=== PATIENT | female | born 1940 | race Caucasian/White ===

== ENCOUNTER 2018-09-05 07:40 | Observation (INO) ==
--- NOTE | 2018-09-05 07:47 | Emergency Department Note ---
Disposition Clinical Impression: Congestive heart failure Qualifiers: Heart failure type: unspecified Heart failure chronicity: acute on chronic Qualified Code(s): I50.9 - Heart failure, unspecified Disposition: Admitted As Inpatient Condition: Good Referrals: Alejo Baca MD [Primary Care Provider] - Forms: ED Satisfaction Letter Time of Disposition: 08:45 SOB HPI - General Chief Complaint: ED Shortness of Breath/Dyspnea Stated Complaint: difficult breathing Time Seen by Provider: 09/05/18 07:46 Source: patient Mode of arrival: EMS Limitations: no limitations Nursing Notes Reviewed: Yes Vital Signs Reviewed: Yes - History of Present Illness 70-year-old female presents from EMS with complaints of shortness of breath. Patient reports her bleeding became worse last night and persisted throughout the night. Patient complains of intermittent pain between her shoulder blades. Patient reports mild cough nonproductive. Patient denies any fevers or chills. Patient has noticed some increased swelling in her right lower extremity. Patient was found to have sats at 88% upon EMS arrival. Patient received 1 DuoNeb. Pt Subjective Complaint: shortness of breath Onset (ago): day(s) (1) Severity: moderate Consistency/Duration: gradually worsening Improves with: bronchodilators Worsens with: exertion Known history of: congestive heart failure Associated symptoms: Reports: cough Treatment prior to arrival: oxygen, bronchodilator Cough present: Yes Cough Description: Voluntary Cough Frequency: Intermittent - Related Data Home Medications Medication Instructions Recorded Confirmed Carvedilol 12.5 mg PO DAILY 05/24/15 09/05/18 Digoxin [Lanoxin] 0.125 mg PO DAILY 05/24/15 09/05/18 Furosemide [Lasix] 20 mg PO DAILY 05/24/15 09/05/18 Gabapentin [Neurontin] 300 mg PO TID 05/24/15 09/05/18 Lovastatin [Altoprev] 40 mg PO DAILY 05/24/15 09/05/18 Warfarin [Coumadin] 5 mg PO DAILY 05/24/15 09/05/18 dilTIAZem HCl [Cardizem] 60 mg PO BID 05/24/15 09/05/18 Calcium Carbonate/Vitamin D3 1 each PO DAILY 09/05/18 09/05/18 [Oyster Shell Calcium-Vit D Tab] Cholecalciferol (Vitamin D3) 5,000 unit PO DAILY 09/05/18 09/05/18 [Vitamin D3] Cyclobenzaprine [Flexeril] 5 mg PO TID PRN 09/05/18 09/05/18 Losartan [Cozaar] 25 mg PO DAILY 09/05/18 09/05/18 Allergies Allergy/AdvReac Type Severity Reaction Status Date / Time CHADWICK Inhibitors AdvReac See Verified 06/06/18 05:12 Comments All systems ED: reviewed and negative except as stated. Review of Systems: As Per HPI Constitutional: Denies: fever, chills ENT ED: Denies: congestion Cardiovascular: Reports: dyspnea on exertion. Denies: chest pain, palpitations Respiratory: Reports: cough, dyspnea. Denies: sputum production Gastrointestinal: Denies: abdominal pain, nausea, vomiting Integumentary: Denies: rash Neurological: Reports: weakness. Denies: headache Psychiatric: Denies: anxiety Hematological/Lymphatic: Denies: easy bleeding, easy bruising Past Medical History - Past Medical History Attestation: Yes The following information was validated with the patient. 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 Absent: conjunctival injection - ENT ENT exam: normal oropharynx, mucous membranes moist, TM's normal bilaterally - Neck Neck exam: Present: normal inspection. Absent: lymphadenopathy, thyromegaly - Expanded Neck Exam Neck exam focused ED: Absent: JVD - Chest Chest inspection: Present: normal inspection, symmetric chest wall rise - Respiratory Respiratory exam: Present: other (tachypnea) - Expanded Respiratory Exam Location: rales: Left, Right, Lower - Cardiovascular Cardiovascular exam: Present: regular rate, normal rhythm - Abdominal Exam Abdominal exam: Present: soft, Non-Tender, normal bowel sounds - Extremities Exam Extremities exam: Present: pedal edema (trace b/l). Absent: calf tenderness - Neurological Exam Neurological exam: Present: alert, oriented X3 - Skin Skin exam: Present: warm, dry, intact, normal color Course - Reevaluation(s) Reevaluation #1: Patient's chest x-ray confirmed congestive heart failure. Patient is given 60 mg Lasix IV hypertension nitro paste and aspirin. Patient is feeling markedly better at this time. I have spoken with the hospitalist, Dr. Escalante, and he will admit patient for further management. Patient is in agreement with this plan. Time: 08:43 Vital Signs Temperature 98.0 F 09/05/18 07:41 Pulse Rate 88 09/05/18 07:41 Respiratory Rate 20 09/05/18 07:41 Blood Pressure 168/107 09/05/18 07:41 O2 Sat by Pulse Oximetry 95 09/05/18 07:41 Temperature 98.0 F 09/05/18 07:41 Pulse Rate 85 09/05/18 08:32 Respiratory Rate 20 09/05/18 08:32 Blood Pressure 128/79 09/05/18 08:32 O2 Sat by Pulse Oximetry 94 09/05/18 08:32 Oxygen Delivery Oxygen Delivery Room Air Shortness of Breath/Dyspnea - Differential Diagnosis Likely: congestive heart failure. Unlikely: acute exacerbation of chronic obstructive airways disease, pneumonia, pulmonary embolism - Lab Data Lab results reviewed: Yes I reviewed the patient's lab results. Lab results narrative: Patient's labs reviewed. Patient's cardiac labs negative. Patient's BNP slightly elevated. Patient's d-dimer is negative. Results discussed patient. Result diagrams: 09/05/18 08:10 09/05/18 08:10 Lab Results 09/05/18 09/05/18 09/05/18 Range/Units 08:10 08:10 08:10 WBC 7.5 (4.3-11.1) K/mcL RBC 4.94 (3.82-4.97) M/mcL Hgb 12.9 (11.5-15.4) g/dL Hct 41.0 (35.3-44.9) % MCV 83.0 (83.0-100.0) fL MCH 26.1 L (28.0-33.3) pg MCHC 31.5 L (31.6-35.5) g/dL RDW 13.1 (11.5-14.5) % Plt Count 178 (140-400) K/mcL MPV 10.1 (9.4-12.4) fL Immature Gran % 0.1 (0-4) % Seg Neutrophils % 55.3 % Lymphocytes % 33.3 % Monocytes % 9.1 % Eosinophils % 1.7 % Basophils % 0.5 % Neutrophils # 4.1 (1.6-8.9) K/mcL Lymphocytes # 2.5 (0.6-4.6) K/mcL Monocytes # 0.7 (0.0-1.3) K/mcL Eosinophils # 0.1 (0.0-0.6) K/mcL Basophils # 0.0 (0.0-0.2) K/mcL PT 30.2 H (9.4-12.1) Seconds INR 2.7 APTT 45.2 H (26.0-36.0) Seconds D-Dimer 258 (0-500) ng/mLFEU Sodium 139 (136-145) mEq/L Potassium 4.4 (3.5-5.1) mEq/L Chloride 104 (98-107) mEq/L Carbon Dioxide 30 H (23-29) mEq/L BUN 13 (8-23) mg/dL Creatinine 0.90 (0.60-1.20) mg/dL Est GFR ( Amer) > 60 (> 60) Est GFR (Non-Af Amer) > 60 (> 60) BUN/Creatinine Ratio 14 (6-26) Glucose 138 H (70-105) mg/dL Calculated Osmolality 290 (280-300) Lactic Acid (0.5-2.2) mmol/L Calcium 8.8 (8.6-10.3) mg/dL Total Bilirubin 0.4 (0.3-1.0) mg/dL AST 19 (13-39) Units/L ALT 17 (7-52) Units/L Alkaline Phosphatase 79 (34-104) Units/L Creatine Kinase 51 (30-223) Units/L Troponin I < 0.03 (< 0.04) ng/mL B-Natriuretic Peptide (Less than 100) pg/mL Serum Total Protein 6.6 (6.4-8.9) g/dL Albumin 3.7 (3.5-5.7) g/dL Globulin 2.9 (2.4-3.5) g/dL Albumin/Globulin Ratio 1.3 (1.1-2.2) 09/05/18 09/05/18 Range/Units 08:10 08:10 WBC (4.3-11.1) K/mcL RBC (3.82-4.97) M/mcL Hgb (11.5-15.4) g/dL Hct (35.3-44.9) % MCV (83.0-100.0) fL MCH (28.0-33.3) pg MCHC (31.6-35.5) g/dL RDW (11.5-14.5) % Plt Count (140-400) K/mcL MPV (9.4-12.4) fL Immature Gran % (0-4) % Seg Neutrophils % % Lymphocytes % % Monocytes % % Eosinophils % % Basophils % % Neutrophils # (1.6-8.9) K/mcL Lymphocytes # (0.6-4.6) K/mcL Monocytes # (0.0-1.3) K/mcL Eosinophils # (0.0-0.6) K/mcL Basophils # (0.0-0.2) K/mcL PT (9.4-12.1) Seconds INR APTT (26.0-36.0) Seconds D-Dimer (0-500) ng/mLFEU Sodium (136-145) mEq/L Potassium (3.5-5.1) mEq/L Chloride (98-107) mEq/L Carbon Dioxide (23-29) mEq/L BUN (8-23) mg/dL Creatinine (0.60-1.20) mg/dL Est GFR ( Amer) (> 60) Est GFR (Non-Af Amer) (> 60) BUN/Creatinine Ratio (6-26) Glucose (70-105) mg/dL Calculated Osmolality (280-300) Lactic Acid 1.5 (0.5-2.2) mmol/L Calcium (8.6-10.3) mg/dL Total Bilirubin (0.3-1.0) mg/dL AST (13-39) Units/L ALT (7-52) Units/L Alkaline Phosphatase (34-104) Units/L Creatine Kinase (30-223) Units/L Troponin I (< 0.04) ng/mL B-Natriuretic Peptide 237 H (Less than 100) pg/mL Serum Total Protein (6.4-8.9) g/dL Albumin (3.5-5.7) g/dL Globulin (2.4-3.5) g/dL Albumin/Globulin Ratio (1.1-2.2) - Radiology Data Radiology results reviewed: Yes I reviewed the patient's radiology results. Patient's chest x-ray was interpreted by the radiologist revealed me as positive for pulmonary edema. Results discussed patient. - EKG Data EKG attestation: Yes I reviewed and interpreted this EKG. EKG shows normal: Reports: sinus rhythm Rate: Reports: normal Rhythm: Reports: NSR Interpretation: Reports: other (paced rhythm)
[2018-09-05] MEDS ORDERED: Nitroglycerin 1 INCH/GM PACKET TP ONE (08:10)
[2018-09-05] MEDS ORDERED: Furosemide 40 MG/4 ML VIAL IVP ONE (08:10)
[2018-09-05] MEDS ORDERED: Aspirin 81 MG TAB.CHEW PO ONE (08:10)
[2018-09-05 08:20] LABS: Basophils % 0.5 %; Eosinophils # 0.1 K/mcL (0.0-0.6); Eosinophils % 1.7 %; Hemoglobin 12.9 g/dL (11.5-15.4); Immature Granulocytes % 0.1 % (0-4); Lymphocytes # 2.5 K/mcL (0.6-4.6); Lymphocytes % 33.3 %; Mean Corpuscular HGB Conc 31.5 g/dL (31.6-35.5); Mean Corpuscular Hemoglobin 26.1 pg (28.0-33.3); Mean Platelet Volume 10.1 fL (9.4-12.4); Monocytes # 0.7 K/mcL (0.0-1.3); Monocytes % 9.1 %; Neutrophils # 4.1 K/mcL (1.6-8.9); Platelet Count 178 K/mcL (140-400); Red Blood Count 4.94 M/mcL (3.82-4.97); Red Cell Distribution Width 13.1 % (11.5-14.5); Segmented Neutrophils % 55.3 %
[2018-09-05 08:24] LABS: INR 2.7; Prothrombin Time 30.2 Seconds (9.4-12.1)
[2018-09-05 08:27] LABS: Activated Partial Thrombo Time 45.2 Seconds (26.0-36.0)
[2018-09-05 08:31] LABS: Alanine Aminotransferase 17 Units/L (7-52); Albumin 3.7 g/dL (3.5-5.7); Albumin/Globulin Ratio 1.3 (1.1-2.2); Alkaline Phosphatase 79 Units/L (34-104); Aspartate Amino Transferase 19 Units/L (13-39); BUN/Creatinine Ratio 14 (6-26); Bilirubin,Total 0.4 mg/dL (0.3-1.0); Blood Urea Nitrogen 13 mg/dL (8-23); Calcium 8.8 mg/dL (8.6-10.3); Carbon Dioxide 30 mEq/L (23-29); Chloride 104 mEq/L (98-107); Creatine Kinase 51 Units/L (30-223); Globulin 2.9 g/dL (2.4-3.5); Glucose 138 mg/dL (70-105); Osmolality,Calculated 290 (280-300); Potassium 4.4 mEq/L (3.5-5.1); Sodium 139 mEq/L (136-145); Total Protein 6.6 g/dL (6.4-8.9); eGFR For Non-African Americans > 60 (> 60)
[2018-09-05 08:35] LABS: Troponin I < 0.03 ng/mL (< 0.04)
[2018-09-05] MEDS ORDERED: Naloxone 0.4 MG/ML INJ IVP PRN (09:36)
[2018-09-05] MEDS ORDERED: Furosemide 60 MG in 0.9 % Sodium Chloride 50 ML IV SCH (09:36)
[2018-09-05] MEDS ORDERED: Acetaminophen 325 MG TABLET PO PRN (09:36)
--- NOTE | 2018-09-05 10:56 | Internal Med History&Physical ---
Date of Encounter: 09/05/18 Time of Encounter: 10:54 Assessment and Plan (1) Congestive heart failure Current visit: Yes Status: Acute continue lasix, monitor labs, wean O2 to maintain sats > 92 % Qualifiers: Heart failure type: unspecified Heart failure chronicity: acute on chronic Qualified Code(s): I50.9 - Heart failure, unspecified (2) Afib Current visit: Yes Status: Acute Has pacer/defib. On Coumadin. Monitor INR. 2.7 today. Follows up with Dr. Vera for cardiology. Qualifiers: Atrial fibrillation type: chronic Qualified Code(s): I48.2 - Chronic atrial fibrillation (3) Hypertension Current visit: Yes Status: Acute Controlled with current medication. Monitor blood pressure. Qualifiers: Hypertension type: essential hypertension Qualified Code(s): I10 - Essential (primary) hypertension Internal Medicine - H&P: HPI Admitted From: Emergency Dept Plans for Post Hospital Care: Home History of present illness: Ms. Ash is a 78 year old female presented to emergency room earlier today. Admitted for observation. Has a 2 day history of shortness of breath with nonproductive cough and pedal edema Chest x-ray shows moderate pulmonary vascular congestion. O2 sats 94% at 2 L. Patient states she does not wear oxygen at home. Denies fever, chills, nausea vomiting or diarrhea. Denies chest pain. States shortness of breath is improving. Does have to fib/pacemaker. 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 Past medical history includes hypertension a fib with chronic Coumadin, CAD, Gerd, hyperlipidemia. Primary care physician is Dr. Baca. States she was just there one week ago. Past Med Surg Social Fam HX - Past Medical History Medical history: atrial fibrillation, CHF, coronary artery disease, GERD, hyperlipidemia, hypertension Additional medical history: lumbar stenosis,lumbar radiculitis,spinal stenosis,systolic heart failure. hx of medical noncompliance per clinician note. Psychiatric history: no psych history - Past Surgical History Surgical History: appendectomy, , hysterectomy, pacemaker/AICD, other Additional surgical history: c section x3. tubal ligation. partial hyster ectomy - Social History Smoking Status: Never smoker Smokeless Tobacco Status: No Alcohol use: none Drug use: none - Family History Father Family Member Ethnicity: Non- Living Status: Age at : 67 Hx Family Cardiac Disorders: Yes Hx Family Cancer: Yes Internal Medicine - H&P: Meds Carvedilol 12.5 mg PO DAILY 05/24/15 [History] Digoxin [Lanoxin] 0.125 mg PO DAILY 05/24/15 [History] Furosemide [Lasix] 20 mg PO DAILY 05/24/15 [History] Gabapentin [Neurontin] 300 mg PO TID 05/24/15 [History] Lovastatin [Altoprev] 40 mg PO DAILY 05/24/15 [History] Warfarin [Coumadin] 5 mg PO DAILY 05/24/15 [History] dilTIAZem HCl [Cardizem] 60 mg PO BID 05/24/15 [History] Calcium Carbonate/Vitamin D3 [Oyster Shell Calcium-Vit D Tab] 1 each PO DAILY 09/05/18 [History] Cholecalciferol (Vitamin D3) [Vitamin D3] 5,000 unit PO DAILY 09/05/18 [History] Cyclobenzaprine [Flexeril] 5 mg PO TID PRN 09/05/18 [History] Losartan [Cozaar] 25 mg PO DAILY 09/05/18 [History] Allergy/AdvReac Type Severity Reaction Status Date / Time CHADWICK Inhibitors AdvReac See Verified 06/06/18 05:12 Comments All Systems PM: A 10-system review of systems was performed and is negative for pertinent findings except as documented above in the HPI. - Constitutional Constitutional: no chills, no fever(s), no night sweats - EENT Eyes: no change in vision, no discharge, no pain, no photophobia Ears: no ear discharge, no ear pain, no tinnitus Nose, mouth and throat: no dysphagia, no nasal discharge, no neck pain, no sore throat - Cardiovascular Cardiovascular ROS IM: no chest pain, no diaphoresis, no dyspnea, no lightheadedness, no palpitations, no syncope - Respiratory Respiratory: as per HPI, cough, no dyspnea, no wheezing, no excessive phlegm production - Gastrointestinal Gastrointestinal: no abdominal pain, no diarrhea, no hematemesis, no hematochezia, no melena, no nausea, no vomiting - Genitourinary Genitourinary: no change in urinary stream, no dysuria, no flank pain, no hematuria - Musculoskeletal Musculoskeletal ROS IM: no numbness, no tingling - Integumentary Integumentary IM: no rash, no unusual bruising - Neurological Neurological ROS: no confusion, no convulsions, no focal weakness, no numbness, no tingling, no tremor(s) - Hematologic/Lymphatic Hematologic/Lymphatic: no easy bruising - Constitutional Vitals: Temp Pulse Resp BP Pulse Ox 98.0 F 85 20 128/79 94 09/05/18 07:41 09/05/18 08:32 09/05/18 08:32 09/05/18 08:32 09/05/18 08:32 General appearance: Present: cooperative, A&O X 3, pleasant, no acute distress, answers questions appropriately - Head Head exam: Present: atraumatic, normocephalic - Eye Eye exam: Present: PERRL, conjuntiva pink, sclera anicteric Pupils: Present: PERRL - Neck Neck exam general surgery: Present: supple, trachea midline. Absent: lymphadenopathy - Respiratory Respiratory exam: Present: CTAB. Absent: accessory muscle use, rales, rhonchi, wheezes Additional comments: diminished bases, dry cough - Cardiovascular Cardiovascular exam: Present: RRR, +S1, +S2. Absent: diastolic murmur, gallop, rubs, systolic murmur - GI/Abdominal GI/Abdominal exam: Present: normal bowel sounds, soft, no peritoneal signs. Absent: distended, tenderness - Extremities Exam Extremities exam: Present: warm, radial pulses palpable and symmetrical. Absent: calf tenderness, cyanotic, pedal edema - Neurological Exam Neurological exam: Present: CN II-XII intact, oriented X3, no focal deficits. Absent: pronater drift, facial droop, speech deficit - Skin Skin exam: Present: dry, intact Internal Med - H&P Results - Labs CBC & Chem 7: 09/05/18 08:10 09/05/18 08:10 Labs: Short CBC 09/05/18 Range/Units 08:10 WBC 7.5 (4.3-11.1) K/mcL Hgb 12.9 (11.5-15.4) g/dL Hct 41.0 (35.3-44.9) % Plt Count 178 (140-400) K/mcL Neutrophils # 4.1 (1.6-8.9) K/mcL BMP 09/05/18 08:10 Sodium 139 Potassium 4.4 Chloride 104 Carbon Dioxide 30 H BUN 13 Creatinine 0.90 Glucose 138 H Calcium 8.8 Cardiac Enzymes 09/05/18 Range/Units 08:10 Troponin I < 0.03 (< 0.04) ng/mL Liver Function 09/05/18 Range/Units 08:10 Total Bilirubin 0.4 (0.3-1.0) mg/dL AST 19 (13-39) Units/L ALT 17 (7-52) Units/L Alkaline Phosphatase 79 (34-104) Units/L Albumin 3.7 (3.5-5.7) g/dL - Impressions ITS Impressions Chest X-Ray 09/05/18 07:47 IMPRESSION: 1. Cardiomegaly with vascular congestion and interstitial infiltrates likely representing edema and congestive failure. D/ / Tj Castillo MD / Tj Castillo MD Interpreting Provider: Tj Castillo MD Chest X-Ray 09/05/18 08:50 IMPRESSION: Moderate pulmonary vascular congestion. D/ / Moe Urrutia MD / Moe Urrutia MD Interpreting Provider: Moe Urrutia MD
[2018-09-05] MEDS: dilTIAZem HCl 60 MG TABLET PO SCH ×2 (12:59→20:04)
[2018-09-05] MEDS: Gabapentin 300 MG CAPSULE PO SCH ×3 (12:59→20:04)
[2018-09-05] MEDS: Cholecalciferol (D-3) 1,000 UNIT TABLET PO SCH (13:00)
[2018-09-05] MEDS: *HR* Digoxin 0.125 MG TABLET PO SCH (13:00)
[2018-09-05] MEDS: Furosemide 40 MG/4 ML VIAL IVP SCH (17:55)
[2018-09-05] MEDS ORDERED: *HR* Warfarin 5 MG TABLET PO SCH (18:00)
[2018-09-06 05:58] LABS: Basophils % 0.1 %; Hematocrit 40.1 % (35.3-44.9); Immature Granulocytes % 0.5 % (0-4); Lymphocytes # 1.1 K/mcL (0.6-4.6); Lymphocytes % 7.7 %; Mean Corpuscular HGB Conc 32.4 g/dL (31.6-35.5); Mean Corpuscular Hemoglobin 26.4 pg (28.0-33.3); Mean Corpuscular Volume 81.5 fL (83.0-100.0); Mean Platelet Volume 10.2 fL (9.4-12.4); Monocytes # 0.6 K/mcL (0.0-1.3); Monocytes % 3.9 %; Neutrophils # 12.6 K/mcL (1.6-8.9); Platelet Count 202 K/mcL (140-400); Red Blood Count 4.92 M/mcL (3.82-4.97); Red Cell Distribution Width 13.1 % (11.5-14.5); Segmented Neutrophils % 87.8 %
[2018-09-06 06:15] LABS: BUN/Creatinine Ratio 18 (6-26); Blood Urea Nitrogen 19 mg/dL (8-23); Carbon Dioxide 28 mEq/L (23-29); Chloride 99 mEq/L (98-107); Glucose 161 mg/dL (70-105); Osmolality,Calculated 284 (280-300); Potassium 4.3 mEq/L (3.5-5.1); Sodium 134 mEq/L (136-145); eGFR For Non-African Americans 50 (> 60)
[2018-09-06] MEDS: Furosemide 40 MG/4 ML VIAL IVP SCH (08:47)
[2018-09-06] MEDS: Cholecalciferol (D-3) 1,000 UNIT TABLET PO SCH (08:49)
[2018-09-06] MEDS: *HR* Digoxin 0.125 MG TABLET PO SCH (08:49)
[2018-09-06] MEDS: dilTIAZem HCl 60 MG TABLET PO SCH (08:49)
[2018-09-06] MEDS: Gabapentin 300 MG CAPSULE PO SCH (08:49)
[2018-09-06 09:35] VITALS: BP 148/81
--- NOTE | 2018-09-06 10:11 | Electrocardiograph Report ---
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 Electronically Signed On 09-06-2018 10:10:04 EDT by Andrew Dunn
--- NOTE | 2018-09-06 11:21 | Discharge Summary ---
- NOTES TO OUTPATIENT PROVIDER Notes to Outpatient Provider: lasix increased to 40mg daily for 3 days, then resume normal dose at 20mg daily. follow up with PCP, Dr baca in 1 week. Orders not resulted at time of discharge: Pending orders 09/05/18 08:00 Culture,Blood [BC] Stat Date of Encounter: 09/06/18 Time of Encounter: 11:19 - Discharge Diagnosis (1) Congestive heart failure Priority: Primary Status: Acute Comments: increase lasix to 40mg daily for 3 days, then resume normal dose at 20mg daily. follow up with Dr Baca, PCP in 1 week. Qualifiers: Heart failure type: unspecified Heart failure chronicity: acute on chronic Qualified Code(s): I50.9 - Heart failure, unspecified (2) Afib Priority: Secondary Status: Chronic Comments: rate and rythm stable. continue coumadin. f/u with PCP. Qualifiers: Atrial fibrillation type: chronic Qualified Code(s): I48.2 - Chronic atrial fibrillation (3) Hypertension Priority: Secondary Status: Chronic Comments: controlled with current meds. monitor BP. follow up with PCP. Qualifiers: Hypertension type: essential hypertension Qualified Code(s): I10 - Essential (primary) hypertension Hospital course: Ms. Ash is a 78 year old female discharging to home after being Admitted for observation for CHF. Had a 2 day history of shortness of breath with nonproductive cough and pedal edema Chest x-ray shows moderate pulmonary vascular congestion. Maintaining O2 sats greater than 92% on room air. Denies fever, chills, nausea vomiting or diarrhea. Denies chest pain. States shortness of breath improved. Does have to fib/pacemaker. 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 Past medical history includes hypertension a fib with chronic Coumadin, CAD, Gerd, hyperlipidemia. Primary care physician is Dr. Baca and scheduled to follow up within one week. Instructed to increase Lasix 240 mg daily for 3 days then resume normal dose at 20 mg daily. Discharge discussed with: patient, nurse - Time Spent with Patient Total time spent providing and/or coordinating discharge services: - Discharge Medications Prescriptions: Continued Carvedilol 12.5 mg PO DAILY Digoxin [Lanoxin] 0.125 mg PO DAILY dilTIAZem HCl [Cardizem] 60 mg PO BID Lovastatin [Altoprev] 40 mg PO DAILY Gabapentin [Neurontin] 300 mg PO TID Warfarin [Coumadin] 5 mg PO DAILY Losartan [Cozaar] 25 mg PO DAILY Calcium Carbonate/Vitamin D3 [Oyster Shell Calcium-Vit D Tab] 1 each PO DAILY Cholecalciferol (Vitamin D3) [Vitamin D3] 5,000 unit PO DAILY Cyclobenzaprine [Flexeril] 5 mg PO TID PRN PRN Reason: Pain Changed Furosemide [Lasix] 40 mg PO DAILY #3 tablet Home Medications: Carvedilol 12.5 mg PO DAILY 05/24/15 [History] Digoxin [Lanoxin] 0.125 mg PO DAILY 05/24/15 [History] Gabapentin [Neurontin] 300 mg PO TID 05/24/15 [History] Lovastatin [Altoprev] 40 mg PO DAILY 05/24/15 [History] Warfarin [Coumadin] 5 mg PO DAILY 05/24/15 [History] dilTIAZem HCl [Cardizem] 60 mg PO BID 05/24/15 [History] Calcium Carbonate/Vitamin D3 [Oyster Shell Calcium-Vit D Tab] 1 each PO DAILY 09/05/18 [History] Cholecalciferol (Vitamin D3) [Vitamin D3] 5,000 unit PO DAILY 09/05/18 [History] Cyclobenzaprine [Flexeril] 5 mg PO TID PRN 09/05/18 [History] Losartan [Cozaar] 25 mg PO DAILY 09/05/18 [History] Furosemide [Lasix] 40 mg PO DAILY #3 tablet 09/06/18 [Rx] Allergies/Adverse Reactions: Allergy/AdvReac Type Severity Reaction Status Date / Time CHADWICK Inhibitors AdvReac See Verified 06/06/18 05:12 Comments Date of admission: 09/05/18 09:17 Primary care physician: Alejo Baca MD Discharging clinician: Royce Escalante Anticipated date of discharge: 09/06/18 - Constitutional Vitals: Temp Pulse Resp BP Pulse Ox 97.8 F 89 16 148/81 93 09/06/18 08:00 09/06/18 08:00 09/06/18 08:00 09/06/18 08:00 09/06/18 08:33 General appearance: Present: cooperative, A&O X 3, pleasant, no acute distress, answers questions appropriately - Head Head exam: Present: atraumatic, normocephalic - Eye Eye exam: Present: PERRL, conjuntiva pink, sclera anicteric Pupils: Present: PERRL - Neck Neck exam general surgery: Present: supple, trachea midline. Absent: lymphadenopathy - Respiratory Respiratory exam: Present: CTAB. Absent: accessory muscle use, rales, rhonchi, wheezes - Cardiovascular Cardiovascular exam: Present: RRR, +S1, +S2. Absent: diastolic murmur, gallop, rubs, systolic murmur - GI/Abdominal GI/Abdominal exam: Present: normal bowel sounds, soft, no peritoneal signs. Absent: distended, tenderness - Extremities Exam Extremities exam: Present: warm, radial pulses palpable and symmetrical. Absent: calf tenderness, cyanotic, pedal edema - Neurological Exam Neurological exam: Present: CN II-XII intact, oriented X3, no focal deficits. Absent: pronater drift, facial droop, speech deficit - Skin Skin exam: Present: dry, intact - Patient Status Disposition: Home, Self-Care Condition: Good Functional capacity at discharge: independent ambulation Overall status at discharge: patient is progressing back to baseline - Discharge Instructions Follow Up With: Alejo Baca MD [Primary Care Provider] - - Diet and Activity Activity: increase activity as tolerated Diet: advance to your usual diet
--- NOTE | 2018-09-06 13:01 | Electrocardiograph Report ---
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
[2018-09-06 18:27] LABS: Acinetobacter baumannii by PCR Not Detected (Not Detect); Candida albicans by PCR Not Detected (Not Detect); Candida glabrata by PCR Not Detected (Not Detect); Candida krusei by PCR Not Detected (Not Detect); Candida parapsilosis by PCR Not Detected (Not Detect); Candida tropicalis by PCR Not Detected (Not Detect); Enterobacter cloacae Cmplx PCR Not Detected (Not Detect); Enterobacteriaceae by PCR Not Detected (Not Detect); Enterococcus by PCR Not Detected (Not Detect); Escherichia coli by PCR Not Detected (Not Detect); Klebsiella oxytoca by PCR Not Detected (Not Detect); Klebsiella pneumoniae by PCR Not Detected (Not Detect); Proteus by PCR Not Detected (Not Detect); Pseudomonas aeruginosa by PCR Not Detected (Not Detect); Serratia marcescens by PCR Not Detected (Not Detect); Staphylococcus aureus by PCR Not Detected (Not Detect); Staphylococcus by PCR DETECTED (Not Detect); Streptococcus agalactiae(B)PCR Not Detected (Not Detect); Streptococcus by PCR Not Detected (Not Detect); Streptococcus pneumoniae PCR Not Detected (Not Detect); Streptococcus pyogenes (A) PCR Not Detected (Not Detect); mecA Methicillin-Resist Gene DETECTED (Not Detect)
[2018-09-07] MEDS ORDERED: *HR* Digoxin 0.25 MG TABLET PO SCH (09:00)
[2018-09-09] MEDS ORDERED: *HR* Digoxin 0.125 MG TABLET PO SCH (09:00)
== END 2018-09-06 11:40 | disposition home or self-care (01) ==
LOC: EMEROOGRE 07:40 → INPGRE 07:40